=== PATIENT | female | born 1955 | race Two or more races ===

== ENCOUNTER 2021-10-05 11:24 | Emergency (ER) | payer OTHER ==
[~2021-10-05] VITALS: Ht 157.5 cm; Wt 84.8 kg
[2021-10-05] MEDS ORDERED: NAPR-1009 PO (12:00)
[2021-10-05] MEDS ORDERED: CYCL5TAB PO (12:00)
[2021-10-05] MEDS ORDERED: CYCLOBENZAPRINE HCL 10 MG TABLET PO ONE (12:00)
[2021-10-05] MEDS ORDERED: NAPROXEN 500 MG TABLET PO ONE (12:00)
[2021-10-05 12:07] VITALS: BP 162/91
[2021-10-05] MEDS ORDERED: CYCLOBENZAPRINE HCL 10 MG TABLET ONE (12:09)
[2021-10-05] MEDS ORDERED: NAPROXEN 500 MG TABLET ONE (12:09)
== END 2021-10-05 12:07 | disposition home or self-care (01) ==
LOC: ER 11:35
DX: S49.91XA Unspecified injury of right shoulder and upper arm, initial encounter (principal); M54.50 Low back pain, unspecified; E11.9 Type 2 diabetes mellitus without complications; Z88.5 Allergy status to narcotic agent; Z79.899 Other long term (current) drug therapy; X58.XXXA Exposure to other specified factors, initial encounter; Y93.89 Activity, other specified; Y92.89 Other specified places as the place of occurrence of the external cause; Y99.8 Other external cause status
CPT/HCPCS: A4663